=== PATIENT | male | born 2000 | race African-American/Black ===

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

== ENCOUNTER 2023-10-12 15:02 | Emergency (ER) | payer OTHER ==
[2023-10-12 15:08] VITALS: BP 131/73; PULSE 83; RESP 20; TEMP 98.3
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
== END 2023-10-12 15:55 | disposition home or self-care (01) ==
LOC: EC 15:02
DX: T22.00XA Burn of unspecified degree of shoulder and upper limb, except wrist and hand, unspecified site, initial encounter (principal); T31.0 Burns involving less than 10% of body surface
CPT/HCPCS: 16020; 99283

== ENCOUNTER 2023-11-09 18:58 | Emergency (ER) | payer OTHER ==
--- NOTE | 2023-11-09 19:50 | ED ---
General Adult HPI - General Source: patient, RN notes reviewed Mode of arrival: ambulatory Limitations: no limitations <Luiza Fisher - Last Filed: 11/09/23 19:48> <Tal March - Last Filed: 11/09/23 20:56> - General Chief complaint: Extremity Problem,Nontraumatic Stated complaint: Left knee injury Time Seen by Provider: 11/09/23 19:48 - History of Present Illness Initial comments: Quick note: 22-year-old male presents to the emergency department for evaluation of left knee pain and swelling. Patient states that this started around 2 weeks ago. He notes that initially he had a lot of pain which has subsided but he continues to have swelling to the knee. He has good range of motion. Denies fever at home, redness, warmth to the area. (Luiza Fisher) Dictation was produced using HASH dictation software. please excuse any grammatical, word or spelling errors. Chief Complaint: 22-year-old male with left knee swelling History of Present Illness: Patient 22-year-old male presents with left knee swelling for approximately a week. Not sure what caused it. States that he p lays basketball regularly there was an event at work where he hit his knee. Not sure exactly when his knee started to hurt hurt. Patient is on walking and walking around with a limp. Denies any fever, chills or night sweats. The ROS documented in this emergency department record has been reviewed and confirmed by me. Those systems with pertinent positive or negative responses have been documented in the HPI. All other systems are other negative and/or noncontributory. (Tal March) - Related Data Previous Rx's Medication Instructions Recorded Ibuprofen [Motrin] 600 mg PO Q8HR PRN #30 tab 01/30/20 SILVER sulfADIAZINE Cream 1 applic TOPICAL DAILY #400 gram 10/12/23 [Silvadene 1% Cream] Allergies Allergy/AdvReac Type Severity Reaction Status Date / Time No Known Allergies Allergy Verified 11/09/23 19:09 Review of Systems ROS Other: All systems not noted in ROS Statement are negative. <Luiza Fisher - Last Filed: 11/09/23 19:48> ROS Other: All systems not noted in ROS Statement are negative. <Tal March - Last Filed: 11/09/23 20:56> ROS Statement: Those systems with pertinent positive or pertinent negative responses have been documented in the HPI. Past Medical History Past Medical History: No Reported History History of Any Multi-Drug Resistant Organisms: None Reported Past Surgical History: No Surgical Hx Reported Past Psychological History: No Psychological Hx Reported Smoking Status: Current every day smoker Past Alcohol Use History: Occasional Past Drug Use History: None Reported <Luiza Fisher - Last Filed: 11/09/23 19:48> General Exam Limitations: no limitations <Luiza Fisher - Last Filed: 11/09/23 19:48> <Tal March - Last Filed: 11/09/23 20:56> - General Exam Comments Initial Comments: Visual Physical Exam Vital signs reviewed General: Well-appearing, nontoxic, no acute distress. Head: Normocephalic, atraumatic Eyes: PERRLA, EOMI ENT: Airway patent Chest: Nonlabored breathing Skin: No visual rash, normal skin tone Neuro: Alert and oriented 3 Musculoskeletal: No gross abnormalities (Luiza Fisher) General: Well-appearing, nontoxic, no acute distress. Head: Normocephalic, atraumatic Eyes: PERRLA, EOMI ENT: Airway patent Chest: Nonlabored breathing Skin: No visual rash, normal skin tone Neuro: Alert and oriented 3 Musculoskeletal: No gross abnormalities Left knee: Effusion to the prepatellar space, slight cracking with external and internal knee rotation. Flexion extension range of motion intact (Tal March) Course Vital Signs 11/09/23 19:07 Temperature 100.4 F H Pulse Rate 95 Respiratory 18 Rate Blood Pressure 142/80 O2 Sat by Pulse 100 Oximetry Medical Decision Making <Luiza Fisher - Last Filed: 11/09/23 19:48> <Tal March - Last Filed: 11/09/23 20:56> - Medical Decision Making Quick note preformed and electronically signed by Luiza Fisher PA-C (Luiza Fisher) Was pt. sent in by a medical professional or institution ([facility] Ridley, [employer], urgent care, hospital, or care home...) When possible be specific @ -No Did you speak to anyone other than the patient for history (EMS, parent, family, police, friend...)? What history was obtained from this source @ -No Did you review nursing and triage notes (agree or disagree)? Why? @ -I reviewed and agree with nursing and triage notes Were old charts reviewed (outside hosp., previous admission, EMS record, old EKG, old radiological studies, urgent care reports/EKG's, care home records)? Report findings @ -No old charts were reviewed Differential Diagnosis (chest pain, altered mental status, abdominal pain women, abdominal pain men, vaginal bleeding, musculoskeletal, weakness, fever, dyspnea, syncope, headache, dizziness, GI bleed, back pain, seizure, CVA, palpatations, mental health)? @ -ACL tear, MCL tear, meniscal tear EKG interpreted by me (3pts min.). @ -None done X-rays interpreted by me (1pt min.). @ -Left knee x-ray is nonacute CT interpreted by me (1pt min.). @ -None done U/S interpreted by me (1pt. min.). @ -None done What testing was considered but not performed or refused? (CT, X-rays, U/S, labs)? Why? @ -None What meds were considered but not given or refused? Why? @ -None Was smoking cessation discussed for >3mins.? @ -No Were there social determinants of health that impacted care today? How? (Homelessness, low income, unemployed, alcoholism, drug addiction, transportation, low edu. Level, literacy, decrease access to med. care, intermediate, rehab)? @ -No Was there de-escalation of care discussed even if they declined (Discuss DNR or withdrawal of care, Hospice)? DNR status @ -No What co-morbidities impacted this encounter? (DM, HTN, Smoking, COPD, CAD, Cancer, CVA, ARF, Chemo, Hep., AIDS, mental health diagnosis, sleep apnea, morbid obesity)? @ -None Was patient admitted / discharged? Hospital course, mention meds given and ro eliu, prescriptions, significant lab abnormalities, going to OR and other pertinent info. @ -22-year-old male presents to the ER for left knee pain left knee swelling. Vital signs stable. No concern for septic arthritis given that I am able to plate the knee. Patient does not have any constitutional symptoms. He does have a low-grade temperature of 100.4. His knee does not feel warm or erythe matous. His knee is being manipulated with no complications. X-rays unremarkable. Patient be discharged given referral to orthopedic surgery. Patient refusing pain medications. Did you discuss the management of the patient with other professionals (professionals i.e. DrBetsy, PA, [employer], lab, RT, psych nurse, child welfare social worker, abalone fisherman, teacher, collections officer, bottle caser)? Give summary @ -No Was critical care preformed (if so, how long)? @ -No Undiagnosed new problem with uncertain prognosis? @ -No Drug Therapy requiring intensive monitoring for toxicity (Heparin, Nitro, Insulin, Cardizem)? @ -No Were any procedures done? @ -No Diagnosis/symptom? Acute, or Chronic, or Acute on Chronic? Uncomplicated (without systemic symptoms) or Complicated (systemic symptoms)? @ -Knee pain Side effects of treatment? @ -No Exacerbation, Progression, or Severe Exacerbation? @ -No Poses a threat to life or bodily function? How? (Chest pain, [place], [place], pneumonia, PE, COPD, DKA, ARF, appy, cholecystitis, CVA, Diverticulitis, Homicidal, Suicidal, threat to staff... and all critical care pts) @ -No (Tal March) Disposition <Luiza Fisher - Last Filed: 11/09/23 19:48> Is patient prescribed a controlled substance at d/c from ED?: No Time of Disposition: 20:56 <Tal March - Last Filed: 11/09/23 20:56> Clinical Impression: Knee effusion Disposition: HOME SELF-CARE Condition: Fair Instructions (If sedation given, give patient instructions): Knee Pain (ED) Referrals: Bashir Godinez DO [Doctor of Osteopathic Medicine] - 1-2 days
[2023-11-09 21:04] VITALS: BP 126/73; PULSE 106; RESP 20; TEMP 102
--- NOTE | 2023-11-09 21:05 | XR ---
INDICATION: Patient age:Male; 22 years old; Reason for study: pain, swelling. COMPARISON: Tibia fibula x-ray 01/30/2020 TECHNIQUE: The left knee was examined in frontal, oblique and lateral projections. FINDINGS: No acute fractures or significant joint space narrowing appreciated. There is a trace suprapatellar e ffusion with mild surrounding soft tissue swelling. No radiopaque foreign bodies.. IMPRESSION: 1. No acute fractures. 2. Trace suprapatellar joint effusion and mild surrounding soft tissue edema.
== END 2023-11-09 21:28 | disposition home or self-care (01) ==
LOC: EC 18:58
DX: M25.462 Effusion, left knee (principal); F17.200 Nicotine dependence, unspecified, uncomplicated
CPT/HCPCS: 99283